=== PATIENT | female | born 1975 | race Two or more races ===

== ENCOUNTER 2025-02-15 00:09 | Emergency (ER) | payer OTHER ==
[~2025-02-15] VITALS: Ht 154.9 cm; Wt 60.7 kg
--- NOTE | 2025-02-15 03:21 | DVH ---
INDICATION: low back pain COMPARISON: None TECHNIQUE: 2 views of the lumbar spine were obtained. FINDINGS: Trace dextroscoliosis has its apex about the L3-L4 interspace. The lumbar vertebral alignment is othe rwise normal. The intervertebral disc spaces are well-maintained. No significant facet arthropathy is noted. No acute fracture, vertebral compression deformity or aggressive osseous lesions. The paravertebral soft tissues are grossly unremarkable. IMPRESSION: No acute osseous abnormality.
--- NOTE | 2025-02-15 04:04 | ED.PDOC ---
History of Present Illness HPI Comments 49 y/o F presents with significant other for c/c of right lower back pain. Pain is reports to have been ongoing since 02/11/25 and radiates down her right leg. No recent trauma or injury. 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 Denial of any further acute symptoms, such as numbness or weakness. Chief Complaint: Back Pain Time Seen by MD: 02:00 Reviewed Notes: Nurses Notes, Medications, Allergies Allergies: Coded Allergies: NO KNOWN ALLERGIES (Unverified , 02/15/25) Home Meds Active Scripts Cyclobenzaprine Hcl (CYCLOBENZAPRINE HCL) 7.5 Mg Tab, 7.5 MG PO Q6HP PRN, #30 TAB Prov:JAIRON DACOSTA MD 02/15/25 Gabapentin (Once-Daily) (Gabapentin) 300 Mg Tab, 300 MG PO Q6HP PRN, #60 TAB Prov:JAIRON DACOSTA MD 02/15/25 Information Source: Patient Mode of Arrival: Ambulatory Severity: Moderate Timing: Hours Duration: Since onset Prehospital treatment: None Past Medical History PAST MEDICAL HISTORY: Denies Surgical History: Denies all surgeries ADVERTISING JOB TITLES History: No Pertinent ADVERTISING JOB TITLES History Social History Smoker: Non-Smoker Alcohol: Denies ETOH Use Drugs: Denies Drug Use Lives In: Home All Other Systems: Reviewed and Negative (as per HPI) Physical Exam General Appearance: No Apparent Distress, Normal HEENT: Normal ENT Inspection, Pharynx Normal, TMs Normal Neck: Full Range of Motion, Non-Tender, Normal, Normal Inspection Respiratory: Chest Non-Tender, Lungs Clear, No Accessory Muscle Use, No Respiratory Distress, Normal Breath Sounds Cardiovascular: No Edema, No JVD, No Murmur, No Gallop, Normal Peripheral Pulses, Regular Rate/Rhythm Breast Exam: Deferred Gastrointestinal: No Organomegaly, Non Tender, No Pulsatile Mass, Normal Bowel Sounds, Soft Genitalia: Deferred Pelvic: Deferred Rectal: Deferred Extremities: No calf tenderness, Normal capillary refill, Normal inspection, Normal range of motion, Non-tender, No pedal edema Musculoskeletal : Location: Right Extremity Location: Back (right paraspinal lumbar area) Apperance: Normal, Tenderness Neurologic: Alert, special loan officer II-XII nml as Tested, No Motor Deficits, Normal Affect, Normal Mood, No Sensory Deficits Cerebellar Function: Normal Reflexes: Normal Skin: Dry, Normal Color, Warm Lymphatic: No Adenopathy Was a procedure done? Was a procedure done?: No Differential Dx Considerations may include: sciatica, degenerative disc disease, musculoskeletal pain, kidney stones, among others X-Ray, Labs, Meds, VS Vital Signs Date Time Temp Pulse Resp B/P (MAP) Pulse Ox O2 Delivery O2 Flow Rate FiO2 02/15/25 05:08 98.3 75 18 142/74 (96) 99 98.3 02/15/25 05:08 75 18 99 Room Air 02/15/25 00:21 98.9 90 14 133/78 97 98.9 Current Medications Medications (Trade) Dose Ordered Sig/Neil Route Start Time Stop Time Status Last Admin Acetaminophen/ Hydrocodone Bitart ([place] 10/325MG Tab) 1 tab ONCE ONCE PO 02/15/25 05:00 02/15/25 05:01 DC 02/15/25 05:04 [place] [address] Ph: [phone] DIAGNOSTIC IMAGING Diagnostic Imaging Report : [id number] Signed PATIENT: MARITO PAN ACCT: [id number] UNIT: [id number] : 1975 LOC: ER ROOM / BED: / AGE / SEX: 49 / F ADM STATUS: REG ER SERVICE [id number] ORDERING PHYSICIAN: JAIRON DACOSTA MD PROCEDURE(s): LUMB2 - LUMBAR SPINE 3 VIEW REASON: low back pain ORDER NUMBER(s): [id number], ACCESSION NUMBER(s): [id number] INDICATION: low back pain COMPARISON: None TECHNIQUE: 2 views of the lumbar spine were obtained. FINDINGS: Trace dextroscoliosis has its apex about the L3-L4 interspace. The lumbar vertebral alignment is otherwise normal. The intervertebral disc spaces are well-maintained. No significant facet arthropathy is noted. No acute fracture, vertebral compression deformity or aggressive osseous lesions. The paravertebral soft tissues are grossly unremarkable. IMPRESSION: No acute osseous abnormality. ATED BY: STEFFEN HERBERT MD DICTATED DATE/TIME: 02/15/25317 SIGNED BY: STEFFEN HERBERT MD SIGNED DATE/TIME: 02/15/25317 CC: Time of 1ST Reevaluation: 02:30 Reevaluation 1ST: Unchanged Patient Education/Counseling: Diagnosis, Treatment Family Education/Counseling: Diagnosis, Treatment SEPSIS Sepsis Screen Date sepsis recognized/suspect: Feb 15, 2025 Time Sepsis recognized/suspect: 0023 Recent Procedure: No On Antibiotic Therapy: No Respiratory Rate >20: No Heart Rate >90: No Temp<36 C (96.8 F) or >38.3 C: No SBP <90 or MAP <65 mmHG: No New Acute Mental Status Change: No Is the patient on CPAP, BIPAP,: No Physician Orders Urinalysis (02/15/25 01:59) Lumbar Spine 3 View (02/15/25 01:59) Vital Signs Date Time Temp Pulse Resp B/P (MAP) Pulse Ox O2 Delivery O2 Flow Rate FiO2 02/15/25 05:08 98.3 75 18 142/74 (96) 99 98.3 02/15/25 05:08 75 18 99 Room Air 02/15/25 00:21 98.9 90 14 133/78 97 98.9 Medications Medications Dose Ordered Sig/Neil Route Start Time Stop Time Status Last Admin Dose Admin Acetaminophen/ Hydrocodone Bitart 1 tab ONCE ONCE PO 02/15/25 05:00 02/15/25 05:01 DC 02/15/25 05:04 Departure 1 Departure Time of Disposition: 04:30 Impression: Primary Impression: Low back pain with sciatica Disposition: 01 HOME / SELF CARE / HOMELESS Condition: Stable e-Prescriptions Cyclobenzaprine Hcl (CYCLOBENZAPRINE HCL) 7.5 Mg Tab 7.5 MG PO Q6HP PRN, #30 TAB Prov: JAIRON DACOSTA MD 02/15/25 Gabapentin (Once-Daily) (Gabapentin) 300 Mg Tab 300 MG PO Q6HP PRN, #60 TAB Prov: JAIRON DACOSTA MD 02/15/25 Discharged With: Self Critical Care Note Critical Care Time?: No Stability Stability form required: No Heart Score Heart Score: Heart Score Response (Comments) Value History N/A 0 EKG N/A 0 Age N/A 0 Risk Factors N/A 0 Troponin N/A 0 Total 0 I personally scribed for JAIRON DACOSTA MD ([email or web address]) on 02/15/25 at 04:04. Electronically submitted by Ant Alberto [email or web address]). JAIRON DACOSTA MD Feb 15, 2025 04:04
[2025-02-15] MEDS ORDERED: CYCL-838 PO (04:48)
[2025-02-15] MEDS ORDERED: GABA300T4 PO (04:48)
[2025-02-15] MEDS: HYDROcodone-ACET 10/325MG TAB PO ONE (05:04)
[2025-02-15 05:08] VITALS: BP 142/74; PULSE 75; RESP 18; TEMP 98.3; O2SAT 99
[2025-02-15 06:35] LABS: Urine Budding Yeast LOADED /hpf (None Seen); Urine Protein, UAD Negative (Negative)
== END 2025-02-15 05:10 | disposition home or self-care (01) ==
LOC: ER 00:09
DX: M54.40 Lumbago with sciatica, unspecified side (principal); Z79.899 Other long term (current) drug therapy
CPT/HCPCS: 72100; 81001